=== PATIENT | female | born 1990 | race Hispanic/Latino ===

== ENCOUNTER 2020-01-12 09:35 | Observation (INO) | payer OTHER ==
[2020-01-12 10:27] LABS: BASOPHILS % (AUTO) 0.1 % (0.0-5.0); EOSINOPHILS % (AUTO) 0.3 % (0.0-8.0); LYMPHOCYTES % (AUTO) 31.4 % (21.0-51.0); MEAN CORPUSCULAR HEMOGLOBIN 20.7 pg (27.0-33.0); MEAN CORPUSCULAR HGB CONC 27.2 g/dL (32.0-36.0); MEAN CORPUSCULAR VOLUME 75.9 fL (79-99); MONOCYTES % (AUTO) 4.4 % (3.0-13.0); NEUTROPHILS % (AUTO) 62.1 % (40.0-77.0); NUCLEATED RED BLOOD CELLS 1.9 % (0.0-0.19); PLATELET COUNT (AUTO) 243 K/uL (130-400); RED BLOOD CELL COUNT(AUTO) 2.66 MIL/uL (4.00-5.50); RED CELL DISTRIBUTION WIDTH 18.9 % (11.0-15.5); WHITE BLOOD COUNT (AUTO) 7.7 K/uL (4.8-10.8)
[2020-01-12 10:30] LABS: HEMATOCRIT 20.2 % (36-48)
[2020-01-12 10:41] LABS: CREATININE 0.7 mg/dL (0.5-1.5); POTASSIUM 3.7 mmol/L (3.5-5.1)
[2020-01-12 10:45] LABS: ALBUMIN 2.9 g/dL (3.5-5.0); BILIRUBIN,TOTAL 0.3 mg/dL (0.2-1.0); TOTAL PROTEIN, SERUM 7.3 g/dL (6.0-8.3)
[2020-01-12 10:55] LABS: BILIRUBIN,URINE Negative (NEGATIVE); COLOR,URINE Yellow (YELLOW); GLUCOSE, URINE (UA) Negative (NEGATIVE); KETONES,URINE Negative (NEGATIVE); LEUKOCYTE ESTERASE ,URINE Trace (NEGATIVE); NITRATE,URINE Negative (NEGATIVE); OCCULT BLOOD,URINE Large (NEGATIVE); PROTEIN,URINE POS 1+ mg/dL (NEGATIVE); UROBILINOGEN,URINE 0.2 mg/dL (0.2-1.0)
[2020-01-12 10:56] LABS: HCG,QUAL RESULT NEGATIVE (NEGATIVE)
[2020-01-12 10:58] LABS: APPEARANCE,URINE SLIGHTLY CLOUDY (CLEAR)
[2020-01-12 11:05] LABS: BACTERIA,URINE Moderate /HPF (None Seen)
[2020-01-12 11:06] LABS: MUCUS,URINE Moderate LPF (None Seen); TRANSITIONAL EPI CELLS,URINE Few /HPF (None Seen)
[2020-01-12] MEDS ORDERED: SODIUM CHLORIDE 0.9% 500ML 500 ML IV ONE (11:32)
[2020-01-12] MEDS ORDERED: HYDRALAZINE HCL 20 MG/ML VIAL IV PRN (15:45)
[2020-01-12] MEDS ORDERED: SODIUM CHLORIDE 0.9% 1000ML 1,000 ML IV SCH (15:45)
[2020-01-12] MEDS ORDERED: ONDANSETRON HCL 4 MG/2 ML VIAL IV PRN (15:45)
[2020-01-12] MEDS ORDERED: CEFTRIAXONE SODIUM 1 GM IV SCH (15:45)
[2020-01-12] MEDS ORDERED: ACETAMINOPHEN 325 MG TAB PO PRN ×2 (15:45)
[2020-01-12 15:56] LABS: RETICULOCYTE % (AUTO) 5.67 % (0.42-2.23)
[2020-01-12 16:01] LABS: % IRON SATURATION 2.6 % (22-44)
[2020-01-12] MEDS ORDERED: SODIUM CHLORIDE 0.9% 1000ML 0 ML IV ONE (18:25)
[2020-01-12 20:47] LABS: HEMATOCRIT 23.1 % (36-48)
[2020-01-12] MEDS ORDERED: FAMOTIDINE/PF 20 MG/2 ML VIAL IV SCH (21:00)
== END 2020-01-12 22:28 | disposition left against medical advice (07) ==
LOC: EDH 09:35 → EDHIP 09:36 → 3DH 23:40
PROVIDERS: ADMIT Hospitalist; ATTEND Hospitalist
DX: D62 Acute posthemorrhagic anemia (principal); N92.0 Excessive and frequent menstruation with regular cycle; E86.9 Volume depletion, unspecified
CPT/HCPCS: 36415; 36430; 80053; 81001; 81025; 83540; 83550; 84484; 85014; 85018; 85025; 85045; 86850; 86900; 86901; 86923 ×2; 87088; 93005; 99285; G0378 ×7; J7040; P9016; J7030